=== PATIENT | male | born 1945 | race Caucasian/White ===

== ENCOUNTER 2024-10-08 14:03 | Emergency (ER) | payer OTHER, SELFPAY ==
[2024-10-08 14:10] VITALS: BP 143/79
[2024-10-08 14:11] VITALS: BMI 32.9
[2024-10-08 15:00] VITALS: BP 163/85
[2024-10-08 15:12] LABS: % Basophils 0.5 % (0-2); % Eosinophils 1.5 % (0-6); % Immature Granulocytes 0.3 % (0-0.5); % Lymphocytes 16.1 % (20.5-51.1); % Neutrophils 72.6 % (42.2-75.2); Absolute Eosinophils 0.1 10^3/uL (0-0.7); Absolute Monocytes 0.6 10^3/uL (0.1-0.6); Absolute Neutrophils 4.7 10^3/uL (1.4-6.5); Hemoglobin 13.6 g/dL (13.0-18.0); Mean Corpuscular Hgb 33.6 pg (27.0-31.0); Mean Corpuscular Volume 98.8 fL (80.0-94.0); Mean Platelet Volume 9.3 fL (7.4-10.4); Nucleated Red Blood Cells % 0 % (-); Platelet Count 169 10^3/uL (130-400); Red Blood Cell Count 4.05 10^6/uL (4.70-6.10); Red Cell Dist. Width 12.6 % (11.5-14.5); White Blood Cell Count 6.5 10^3/uL (4.8-10.8)
[2024-10-08 15:26] LABS: ALT (SGPT) < 10 U/L (0-50); AST (SGOT) 19 U/L (17-59); Albumin 4.4 g/dl (3.5-5.0); Alkaline Phosphatase 96 U/L (38-126); Blood Urea Nitrogen 23 mg/dl (9-20); Calcium 9.3 mg/dl (8.4-10.2); Carbon Dioxide 24 mmol/L (22-30); Chloride 108 mmol/L (98-107); Estimated Creatinine Clearance 92 ml/min; Glucose 116 mg/dl (70-99); Potassium 4.5 mmol/L (3.5-5.1); Sodium 140 mmol/L (135-145); Total Bilirubin 0.8 mg/dl (0.2-1.3); Total Protein 6.4 g/dl (6.3-8.2); eGFR > 60.00
[2024-10-08 15:36] LABS: Troponin I < 0.012 ng/ml
--- NOTE | 2024-10-08 15:50 | ED.GENMED ---
History of Present Illness
General
Chief Complaint: Chest Pain
Source: patient
Time Seen by Provider: 10/08/24 15:13
History of Present Illness
History of Present Illness:
79-year-old male with past medical history of Parkinson's disease and interstitial lung disease presenting to the emergency department for evaluation of a chest discomfort that he describes as a sensation as if he cannot take a full deep breath but
notes that when he does take a deep breath he does not have any pain associated. Patient's was concerned as they recently traveled to this area from [facility] and are due to travel back to [place] on Wednesday and she did not want the
patient to have any medical emergency on the plane. Patient is denying any recent fevers, chills, rigors, lower extremity edema, palpitations, diaphoresis, exertional dyspnea or orthopnea. Patient does note that when he does lay flat for an
extended period of time he will often feel the discomfort sensation in his chest and he feels that he needs to maneuver himself. No other concerns presently.
Past History
Past History
ED Past Medical History: Other (Parkinson's disease) and Other (Interstitial lung disease)
ED Past Surgical History: None
Social History
Tobacco: Non-smoker
Alcohol: None
Drug: None
Personal:
Living: with family
Review of Systems
Review of Systems
All Other Systems: ROS reviewed and negative except as documented in HPI and ROS
Phy Exam
Physical Exam
Physical Exam:
GENERAL: Alert , in no apparent distress, appears older than stated age
HEAD: Normocephalic atraumatic
EYE: Clear conjunctiva
NECK: Supple
ENT: o/p clr, mmm.
CARDIAC: Regular rate and rhythm .
LUNGS: Clear breath sounds bilaterally, no acute respiratory distress, no wheezes/rales/rhonchi
NEUROLOGICAL: Alert and oriented
SKIN: Warm and dry, skin intact.
MUSCULOSKELETAL: Trace ankle edema bilateral which patient and state is baseline, well perfused.
PSYCH: Normal and appropriate interaction.
Scores
Heart Failure Risk
Heart Failure Risk Score: Not Applicable
Heart Score for Chest Pain Patients
STEMI patient?: Not applicable
Withdrawal Assessment of Alcohol
Withdrawal Assessment Completed?: Not applicable
Course
Orders/Labs/Results
Orders:
Orders
10/08/24 14:10
Electrocardiogram (*1) Urgent
Reason for Study: Chest Pain
EKG- Treatment ONCE
10/08/24 15:03
Complete Blood Count/With Diff Urgent
Comprehensive Metabolic Panel Urgent
Troponin I Urgent
10/08/24 15:30
CT Chest PE Study Urgent
Comment:
Reason For Exam: chest pressure, SOB, hx ILD
Abnormal Lab Results
10/08/24
15:03
RBC 4.05 L 10^6/uL
(4.70-6.10)
MCV 98.8 H fL
(80.0-94.0)
MCH 33.6 H pg
(27.0-31.0)
Absolute Lymphs (auto) 1.0 L 10^3/uL
(1.2-3.4)
Lymphocytes % 16.1 L %
(20.5-51.1)
Chloride 108 H mmol/L
(98-107)
BUN 23 H mg/dl
(9-20)
Glucose 116 H mg/dl
(70-99)
10/08/24 15:03
10/08/24 15:03
Vital Signs
Initial and Last Documented VS:
Initial Vital Signs
Temp Pulse Resp BP Pulse Ox
98.4 F 66 16 143/79 95
10/08/24 14:10 10/08/24 14:10 10/08/24 14:10 10/08/24 14:10 10/08/24 14:10
Last Documented Vital Signs
Temp Pulse Resp BP Pulse Ox
98.4 F 72 16 165/84 95
10/08/24 14:10 10/08/24 19:18 10/08/24 19:18 10/08/24 19:16 10/08/24 19:16
MDM/Problems Addressed
Differential Diagnosis Includes:
acute on chronic exacerbation of ILD, ACS, PE, pneumonia, chf
MDM/Problems Addressed:
79 year old male presenting to the ED for evaluation of mild chest discomfort, worse when laying flat but also notes it feels as if he cannot take a deep breath. Notes recent prolonged travel and is due to go back home in two days. No fevers or
known sick contacts. Patient is stable here and in no acute distress. Pulse ox between 97 and 99% on room air, no tachycardia. EKG done in triage shows sinus rhythm with a left bundle branch block which patient reports that he has a history of a
left bundle. Will check CTA of the chest. Disposition pending
Chronic conditions affecting care: Neurological disorder and Other (Interstitial lung disease)
*Radiology
Radiology exam reviewed: radiology read reviewed
*Pulse Oximetry
Patient hypoxic: no
*EKG
Heart Rate: 59
Rate: bradycardiac
Rhythm: sinus
[place]: left axis deviation
QRS Pattern: left bundle branch block
*Business Agent Interpretation
Rate: normal
Rhythm: sinus
*Critical Care Note
Total Time (30-74mins, 75-104mins- exclusive of procedures): Not Applicable
Patient Management
Escalation/DeEscalation of care consider admission/obs:
Patient CT scan consistent with interstitial lung disease. No other acute findings. Patient remains hemodynamically stable and in no acute distress. 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 Aware of return precautions to the ER
ED Attending Note
-
Portions of this chart may have been created with voice recognition software.� Occasional wrong word or��sound alike� substitutions may have occurred due to the inherent limitations of voice recognition software.
Discharge Plan
Departure
Patient Disposition: Home (Routine Discharge)
Date of Disposition: 10/08/24
Time of Disposition: 19:12
Patient with high blood pressure during this ER visit?: No
Discharge Problem:
Interstitial lung disease
Instructions: Interstitial lung disease
Referrals:
NONE,* [Family Provider] -
Interventions
Interventions:
*Risk Screen - Suicide Last Done: 10/08/24 14:15
*General Assessment Last Done: 10/08/24 14:15
*Neglect/Abuse Screening Last Done: 10/08/24 14:15
*ED- Fall Risk Assessment Last Done: 10/08/24 14:14
*ED COVID-19 Vaccine History Last Done: 10/08/24 14:14
*Nursing Disposition Last Done: 10/08/24 19:31
ED- Cardiac Assessment Last Done: 10/08/24 14:16
Discharge Date and Time
Discharge Date/Time: 10/08/24 19:36
Print Language: OCCITAN
[2024-10-08 16:00] VITALS: BP 143/89
[2024-10-08 17:00] VITALS: BP 121/70
[2024-10-08 18:00] VITALS: BP 142/78
[2024-10-08 19:16] VITALS: BP 165/84
== END 2024-10-08 19:36 | disposition home or self-care (01) ==
LOC: EMR 14:03
PROVIDERS: EMERGENCY PHYSICIAN Student in an Organized Health Care Education/Training Program
DX: R07.89 Other chest pain (principal); J84.9 Interstitial pulmonary disease, unspecified; R60.0 Localized edema; I44.7 Left bundle-branch block, unspecified; G20.A1 Parkinson's disease without dyskinesia, without mention of fluctuations
CPT/HCPCS: 99285; 71275; 80053; 84484; 85025; 93005; Q9967